=== PATIENT | male | born 1995 | race Caucasian/White ===

== ENCOUNTER 2018-11-21 17:45 | Emergency (ER) | payer SELFPAY ==
[~2018-11-21] VITALS: Ht 172.7 cm; Wt 72.7 kg
[2018-11-21 18:35] VITALS: BP 131/76
[2018-11-21] MEDS ORDERED: ONDANSETRON HCL 4 MG TABLET PO ONE (18:45)
== END 2018-11-21 19:04 | disposition home or self-care (01) ==
LOC: EMS 17:46
DX: R11.2 Nausea with vomiting, unspecified (principal)
CPT/HCPCS: 99283; Q0162